=== PATIENT | male | born 1965 | race Caucasian/White ===

== ENCOUNTER 2018-08-15 15:04 | Outpatient (CLI) | payer OTHER ==
[~2018-08-15] VITALS: Ht 175.3 cm; Wt 102.1 kg
[~2018-08-15 15:04] MED LIST: ASPI-587 PO; ATEN1TAB45 PO; ATOR40TA70 PO; CEFP250T2 PO; OMEG1CAP51 PO; SITA1TBM7 PO
[2018-08-15] MEDS ORDERED: SITA1TBM7 PO (15:22)
[2018-08-15] MEDS ORDERED: ATEN50TA PO (15:22)
[2018-08-15] MEDS ORDERED: ATOR40TA70 PO (15:22)
[2018-08-15] MEDS ORDERED: OMG1KC PO (15:22)
[2018-08-15] MEDS ORDERED: ASPI-999 PO (15:22)
== END 2018-08-15 15:24 | disposition home or self-care (01) ==
LOC: PREOP 15:04
PROVIDERS: ATTEND Internal Medicine
DX: Z01.818 Encounter for other preprocedural examination (principal)

== ENCOUNTER 2018-09-02 07:59 | Day surgery (SDC) | payer BC, OTHER ==
--- NOTE | 2018-08-08 17:27 | HISTORY AND PHYSICAL ---
DATE OF SERVICE: HISTORY OF PRESENT ILLNESS: The patient is a 53-year-old white male referred by Dr. Salamanca for his first screening colonoscopy. He is deemed to be of average risk as he is not aware of any family history of colon cancer or colon polyps and he reports no abdominal pain, change in bowel habits, melena, bright red blood per rectum or weight change. He reports that he has felt well. PAST MEDICAL HISTORY: Significant for hypertension, hyperlipidemia and type 2 diabetes mellitus. He has no known history of vascular disease. MEDICATIONS ON ADMISSION: Invokamet 150/1000 two tabs daily, atenolol 50 mg daily, Lipitor 10 mg daily, unknown amount of fish oil daily, baby aspirin daily and a Move Free supplement for arthritis. He has had no past surgical history. He has had no previous hospitalizations. He had one emergency room visit for vertigo in 2014, at which time a CT head revealed some changes of otitis media; otherwise, unremarkable. FAMILY HISTORY: He is not aware of any family history for colon cancer, colon polyps or any other GI tract malignancy. 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 PHYSICAL EXAMINATION: GENERAL: Reveals a well-appearing white male in no acute distress. VITAL SIGNS: He is roughly 5 feet 10 inches tall, weighs 220.8 pounds. Blood pressure 142/84 which he reports is higher than normal for him. HEENT: Unremarkable. Sclerae nonicteric. NECK: Revealed no JVD, adenopathy or bruits. CHEST: Clear to auscultation. CARDIOVASCULAR: Reveals regular rate and rhythm without murmur, S3 or S4. ABDOMEN: Soft, supple without mass, organomegaly or tenderness. Bowel sounds are positive in all four quadrants. EXTREMITIES: Reveal no cyanosis, clubbing or edema. ASSESSMENT AND PLAN: The patient was set up for his first screening colonoscopy on 08/19/2018 with no medical contraindications to proceed with planned procedure. The patient had a lot of questions about the rationale behind screening colonoscopy and was a little bit anxious about the procedure. Rationale was discussed. The patient's questions were answered. Prep instructions were given and electronic medical record was reviewed. He was much more comfortable with proceeding with the procedure at the end of the appointment. 30 minutes [id number] time spent in the office by myself and 15 minutes of staff time and another 10 minutes plus time for electronic medical record review. I thank you for the referral of this pleasant gentleman. Job ID: [id number] DocumentID: [id number] Dictated Date: 08/02/2018 09:43:27 Distributor Sales Manager Date: 08/02/2018 10:21:05 Dictated By: SERGEY GUILLERMO MD
[~2018-09-02] VITALS: Ht 175.3 cm; Wt 102.1 kg
[~2018-09-02 07:59] MED LIST changes: +ASPI-999 PO; +ATEN50TA PO; +OMG1KC PO
[2018-09-02 08:05] VITALS: BP 144/94
[2018-09-02] MEDS ORDERED: D5 LR IV SOLUTION 1,000 ML IV STA (08:05)
[2018-09-02] MEDS ORDERED: D5 LR IV SOLUTION 1,000 ML IV ONE (08:09)
[2018-09-02] MEDS ORDERED: fentaNYL INJECTION 100 MCG/2 ML AMP IVP ONE (08:15)
[2018-09-02] MEDS ORDERED: MIDAZOLAM 2 MG/2 ML (VERSED) VIAL IVP ONE (08:15)
[2018-09-02] MEDS ORDERED: LIDOCAINE JELLY 2% 6 ML SYRINGE MM PRN (08:15)
[2018-09-02] MEDS ORDERED: MIDAZOLAM 2 MG/2 ML (VERSED) VIAL ONE ×2 (08:55)
[2018-09-02] MEDS ORDERED: fentaNYL INJECTION 100 MCG/2 ML AMP ONE (08:55)
--- NOTE | 2018-09-02 09:13 | Pre-Op Note & Conscious Sedat ---
Pre-Operative Progress Note H&P Reviewed The H&P was reviewed, patient examined and no changes noted. Date H&P Reviewed: Sep 02, 2018 Time H&P Reviewed: 08:45 Conscious Sedation Pre-Proced ASA Score 2 For ASA 3 and 4: Consider anesthesia and medical clearance. Also, for patients with a history of failed moderate sedation consider anesthesia. Airway Lungs Heart ASA score ASA 1: a normal healthy patient ASA 2: a patient with a mild systemic disease (mid diabetes, controlled hypertension, obesity ASA 3: a patient with a severe systemic disease that limits activity (angina , COPD, prior Myocardial infarction) ASA 4: a patient with an incapacitating disease that is a constant threat to life (CHF, renal failure) ASA 5: a moribund patient not expected to survive 24 hrs. (ruptured aneurysm) ASA 6: a declared brain patient whose organs are being harvested. For emergent operations, add the letter E after the classification Mallampati Classification Grade 3 Sedation Plan Analgesia, Amnesia, Plan communicated to team members, Discussed options with patient/fam, Discussed risks with patient/fam The patient is an appropriate candidate to undergo the planned procedure, sedation, and anesthesia. The patient immediately re-assessed prior to indication. SERGEY GUILLERMO MD Sep 02, 2018 09:13
[2018-09-02 09:45] VITALS: BP 138/90
[2018-09-02 10:11] VITALS: BP 128/88
[2018-09-02 10:14] VITALS: BP 128/88
--- NOTE | 2018-09-02 16:57 | OPERATIVE REPORT ---
DATE OF SERVICE: COLONOSCOPY SUMMARY INDICATION FOR THE PROCEDURE: Screening colonoscopy. The patient was placed in the left lateral decubitus position. Prior to undergoing colonoscopy, digital rectal evaluation was performed. Anal sphincter tone was normal and the perianal reflexes intact. Prostate is mildly enlarged, anodular and nontender to digital inspection. No other abnormalities were noted on digital inspection of anal canal or distal rectal vault. The colonoscope was then inserted into the rectum and under direct visualization advanced to cecum. The cecum was identified by identification of the ileocecal valve and cecal strap. Photographic documentation was obtained. Careful inspection was made as the colonoscope was withdrawn. The patient tolerated the procedure well. FINDINGS: There was no evidence for internal or external hemorrhoids and the rectum was unremarkable. Present in the mid sigmoid colon was a diminutive polyp; it was biopsied and ablated and submitted for histopathology. No evidence for diverticular disease was noted. No subsequent blood loss was noted. The descending colon, splenic flexure, transverse colon, hepatic flexure, ascending colon and cecum were unremarkable. ASSESSMENT: One diminutive polyp was removed via hot forceps from the mid sigmoid colon with an otherwise normal colonoscopy to the cecum. Digital rectal evaluation was compatible with mild benign prostatic hypertrophy without evidence for prostate nodularity or tenderness. Would advocate consideration for repeat screening colonoscopy in 10 years. The patient reports no family history for colon cancer. I thank you for the referral of this pleasant gentleman. Job ID: [id number] DocumentID: [id number] Dictated Date: 09/02/2018 10:35:37 Tax Senior Associate Date: 09/02/2018 16:56:37 Dictated By: SERGEY GUILLERMO MD
== END 2018-09-02 10:16 | disposition home or self-care (01) ==
LOC: ENDO 07:59
PROVIDERS: ATTEND Internal Medicine
DX: Z12.11 Encounter for screening for malignant neoplasm of colon (principal); D12.5 Benign neoplasm of sigmoid colon; I10 Essential (primary) hypertension; E11.9 Type 2 diabetes mellitus without complications; E78.5 Hyperlipidemia, unspecified; Z79.82 Long term (current) use of aspirin; Z79.899 Other long term (current) drug therapy